=== PATIENT | male | born 1985 | race Two or more races ===

== ENCOUNTER 2020-03-13 04:36 | Emergency (ER) | payer OTHER ==
[~2020-03-13] VITALS: Ht 180.3 cm; Wt 90.7 kg
--- NOTE | 2020-03-13 04:45 | NUR ---
Dr. Aviles at bedside for MSE.
[2020-03-13] MEDS ORDERED: HYDROMORPHONE 1 MG/1 ML DISP.SYRIN ONE ×2 (04:56→05:50)
[2020-03-13] MEDS ORDERED: KETOROLAC TROMETHAMINE 30 MG INJ ONE (04:56)
[2020-03-13] MEDS ORDERED: ONDANSETRON 4 MG/2 ML VIAL ONE (04:57)
[2020-03-13] MEDS ORDERED: ONDANSETRON 4 MG/2 ML VIAL IV ONE (05:00)
[2020-03-13] MEDS ORDERED: KETOROLAC TROMETHAMINE 15 MG INJ IVP ONE (05:00)
[2020-03-13] MEDS ORDERED: HYDROMORPHONE 1 MG/1 ML DISP.SYRIN IV ONE ×2 (05:00→05:45)
--- NOTE | 2020-03-13 05:05 | NUR ---
Pt down to CT with Tech via stretcher.
[2020-03-13 05:14] LABS: *BILIRUBIN,URIN NEGATIVE (NEGATIVE); *BLOOD, URINE 3+ (NEGATIVE); *CLARITY,URINE CLOUDY (CLEAR); *COLOR,URINE YELLOW (YELLOW); *KETONES,URINE TRACE (NEGATIVE); *UROBILINOGEN,URINE 0.2 E.U./dl (NORMAL); LEUKOCYTE ESTERASE ,URINE NEGATIVE (NEGATIVE); NITRITE, URINE NEGATIVE (NEGATIVE); PH,URINE 5.5 (5.0-8.0); UGLUCOSE NEGATIVE (NEGATIVE)
[2020-03-13 05:20] LABS: BASOPHILS # (AUTO) 0.1 K/uL (0.0-8.0); BASOPHILS % (AUTO) 0.4 % (0.0-2.0); EOSINOPHILS % (AUTO) 0.3 % (0.0-7.0); HEMATOCRIT 41.5 % (36.7-47.1); HEMOGLOBIN 14.1 g/dL (12.5-16.3); LYMPHOCYTES # (AUTO) 1.6 K/uL (20.0-40.0); LYMPHOCYTES % (AUTO) 9.3 % (20.5-51.5); MEAN CORPUSCULAR HEMOGLOBIN 30.3 uug (23.8-33.4); MEAN CORPUSCULAR HGB CONC 34 g/dL (32.5-36.3); MEAN CORPUSCULAR VOLUME 89.3 fL (73.0-96.2); MONOCYTES # (AUTO) 1.1 K/uL (2.0-10.0); MONOCYTES % (AUTO) 6.2 % (0.0-11.0); NEUTROPHILS # (AUTO) 14.2 K/uL (1.8-8.9); NEUTROPHILS % (AUTO) 83.8 % (38.5-71.5); PLATELET COUNT (AUTO) 336 K/uL (152-348); RED BLOOD CELL COUNT(AUTO) 4.64 MIL/uL (4.06-5.63); WHITE BLOOD COUNT (AUTO) 16.9 K/uL (3.6-10.2)
--- NOTE | 2020-03-13 05:23 | NUR ---
Pt back from CT.
[2020-03-13 05:24] LABS: CREATININE 1.2 mg/dL (0.6-1.3); POTASSIUM 3.7 mmol/L (3.5-5.1)
[2020-03-13 05:30] LABS: BILIRUBIN,DIRECT 0.1 mg/dL (0.0-0.2); BILIRUBIN,TOTAL 0.4 mg/dL (0.2-1.0)
[2020-03-13] MEDS ORDERED: TAMSULOSIN HCL 0.4 MG CAP.SR.24H PO ONE (05:45)
[2020-03-13 05:47] LABS: RBC,URINE 50-80 /HPF (0-3)
[2020-03-13 05:48] LABS: BACTERIA,URINE NONE SEEN /HPF (NONE SEEN); RED BLOOD CELL CASTS,URINE FEW /LPF (NONE SEEN); SQUAMOUS EPITHELIAL CELL,UR FEW /HPF (NONE SEEN)
[2020-03-13] MEDS ORDERED: TAMSULOSIN HCL 0.4 MG CAP.SR.24H ONE (05:50)
--- NOTE | 2020-03-13 06:00 | NUR ---
MD cleared pt for DC. Written and verbal after care instructions given. Emphasized that he will not drive home. Pt stated that he will be picked up to go to home. Patient verbalizes understanding of instructions. Stressed follow up or return to ER for worsening s/s. Ambulated out of ER in steady gait.
[2020-03-13 06:03] VITALS: BP 122/76
== END 2020-03-13 06:05 | disposition home or self-care (01) ==
LOC: ER 04:44
DX: N13.2 Hydronephrosis with renal and ureteral calculous obstruction (principal); Z72.0 Tobacco use; R31.29 Other microscopic hematuria
CPT/HCPCS: 36415; 74176; 80048; 80076; 81001; 83690; 85025; 96374; 96375; 99284; J1170 ×2; J1885; J2405; A4663